=== PATIENT | female | born 1975 | race African-American/Black ===

== ENCOUNTER 2016-11-02 11:58 | Emergency (ER) | payer MEDICAID ==
[~2016-11-02] VITALS: Ht 157.5 cm; Wt 85.0 kg
[2016-11-02] MEDS ORDERED: AZITHROMYCIN 500 MG TABLET PO ONE (13:15)
[2016-11-02] MEDS ORDERED: CEFTRIAXONE SODIUM 250 MG/VIAL IM ONE (13:15)
[2016-11-02] MEDS ORDERED: CLONIDINE 0.2MG TABLET PO ONE (13:15)
[2016-11-02 15:13] VITALS: BP 131/71
== END 2016-11-02 15:31 | disposition home or self-care (01) ==
LOC: ER 13:55
DX: Z20.828 Contact with and (suspected) exposure to other viral communicable diseases (principal); N93.9 Abnormal uterine and vaginal bleeding, unspecified; I10 Essential (primary) hypertension; Z88.0 Allergy status to penicillin
CPT/HCPCS: 96372; 99283; J0696; Z7610

== ENCOUNTER 2017-04-14 14:03 | Emergency (ER) | payer MEDICAID ==
[~2017-04-14] VITALS: Ht 154.9 cm; Wt 75.0 kg
[2017-04-14 14:59] VITALS: BP 147/98
[2017-04-14] MEDS ORDERED: ACETAMINOPHEN WITH CODEINE 300/30MG TABLET PO STA (14:59)
== END 2017-04-14 19:00 | disposition home or self-care (01) ==
LOC: ER 14:11
DX: S76.012A Strain of muscle, fascia and tendon of left hip, initial encounter (principal); I10 Essential (primary) hypertension; Z88.0 Allergy status to penicillin; Z98.51 Tubal ligation status; X58.XXXA Exposure to other specified factors, initial encounter; Y93.89 Activity, other specified; Y92.89 Other specified places as the place of occurrence of the external cause; Y99.8 Other external cause status
CPT/HCPCS: 73502; 81025; 99284